=== PATIENT | female | born 1975 | race Two or more races ===

== ENCOUNTER 2020-02-24 04:49 | Inpatient (IN) | payer BC, OTHER ==
[2020-02-21 09:54] VITALS: BMI 37.8
[2020-02-24 06:36] LABS: HEMATOCRIT 40.9 % (32.4-45.2); HEMOGLOBIN 13.7 GM/dL (10.7-15.3); MCHC 33.4 g/dl (32.0-36.0); MEAN CELL VOLUME 86.6 fl (80-96); MEAN PLT VOLUME 7.5 fl (7.5-11.1); PLATELET COUNT 289 K/MM3 (134-434); RBC 4.72 M/mm3 (3.60-5.2); WHITE BLOOD COUNT 9.3 K/mm3 (4.0-10.0)
[2020-02-24 06:52] LABS: INR 1.08 (0.83-1.09); PROTHROMBIN TIME (PATIENT) 13.2 SEC (9.7-13.0)
[2020-02-24 06:55] LABS: ACTIVATED PTT 35.2 SECONDS (25.2-36.5)
[2020-02-24 06:59] LABS: POTASSIUM 4.5 mmol/L (3.5-5.1)
[2020-02-24 07:01] LABS: ALBUMIN 4.1 g/dl (3.4-5.0); CALCIUM 9.1 mg/dL (8.5-10.1)
[2020-02-24 07:02] LABS: BLOOD UREA NITROGEN 10.8 mg/dL (7-18)
[2020-02-24 07:05] LABS: CREATININE 0.8 mg/dL (0.55-1.3)
[2020-02-24 07:06] LABS: BILIRUBIN,TOTAL 0.4 mg/dL (0.2-1); TOT PROT 7.5 g/dl (6.4-8.2)
[2020-02-24] MEDS ORDERED: MIDAZOLAM HCL 2 MG/2 ML SINGLE DOSE VIAL ONE (07:33)
[2020-02-24] MEDS ORDERED: fentaNYL CITRATE 250 MCG/5 ML VIAL ONE (07:33)
[2020-02-24] MEDS ORDERED: PROPOFOL 20 ML ONE ×13 (07:33→11:52)
[2020-02-24] MEDS ORDERED: SUCCINYLCHOLINE CHLORIDE 200 MG/10 ML SYRINGE ONE (07:33)
[2020-02-24] MEDS ORDERED: SCOPOLAMINE HYDROBROMIDE 1 PATCH PATCH.TD72 ONE (08:01)
[2020-02-24] MEDS ORDERED: ceFAZolin SODIUM 1 GM VIAL ONE ×2 (08:33→12:09)
[2020-02-24] MEDS ORDERED: ceFAZolin SODIUM 1 GM VIAL IVPB ONE (08:40)
[2020-02-24] MEDS ORDERED: VANCOMYCIN 1,000 MG VIAL (RESTRICTED TO ID ONLY) ONE (08:42)
[2020-02-24] MEDS ORDERED: VANCOMYCIN 1,000 MG VIAL (RESTRICTED TO ID ONLY) IVPB ONE (08:45)
[2020-02-24] MEDS ORDERED: LIDOCAINE HCL/PF 2% SDV 5ML VIAL ONE (08:46)
[2020-02-24] MEDS ORDERED: TRANEXAMIC ACID 1000 MG/10 ML VIAL ONE (08:46)
[2020-02-24] MEDS ORDERED: LIDOCAINE 1%/EPI 1:100000 (50 ML MULTI DOSE VIAL) ONE (09:10)
[2020-02-24] MEDS ORDERED: THROMBIN (BOVINE) 5,000 UNIT VIAL TP ONE (09:12)
[2020-02-24] MEDS ORDERED: LIDOCAINE 1%/EPI 1:100000 (20 ML MULTI DOSE VIAL) IJ ONE (10:21)
[2020-02-24] MEDS ORDERED: SEVOFLURANE 250 ML BTL ONE (11:40)
[2020-02-24] MEDS ORDERED: DESFLURANE GAS 240 ML BOTTLE IH ONE (11:42)
[2020-02-24] MEDS ORDERED: DEXAMETHASONE SOD PHOSPHATE 4 MG/1 ML VIAL ONE (12:08)
[2020-02-24] MEDS ORDERED: ONDANSETRON 4 MG/2 ML VIAL ONE (12:08)
[2020-02-24] MEDS ORDERED: ONDANSETRON 4 MG/2 ML VIAL IVPUSH PRN (12:30)
[2020-02-24] MEDS ORDERED: PATIENT'S OWN MEDICATION (NON-FORMULARY) (Azelastine Hcl [Azelastine Hcl] 137 MCG) NS SCH (12:30)
[2020-02-24] MEDS ORDERED: oxyCODONE HCL 5 MG TABLET PO PRN (12:30)
[2020-02-24] MEDS ORDERED: HEPARIN NA (PORCINE) 5,000 UNITS/ML 1ML VIAL ONE (12:44)
[2020-02-24] MEDS ORDERED: THROMBIN (BOVINE) 20,000 UNIT VIAL TP ONE (12:44)
[2020-02-24] MEDS ORDERED: ALBUTEROL SO4 HFA INHALER IH ONE (12:48)
[2020-02-24] MEDS: LACTATED RINGERS SOLUTION 1,000 ML IV SCH ×2 (14:00→14:30)
[2020-02-24] MEDS: MORPHINE SULFATE 2 MG/ML VIAL IVPUSH PRN ×2 (16:00→22:09)
[2020-02-24] MEDS: CEFAZOLIN 2 GM/D5W 2 GM/50 ML ML IVPB SCH ×2 (17:25→21:05)
[2020-02-24] MEDS ORDERED: FAMOTIDINE 10 MG TABLET PO ONE (20:23)
[2020-02-24] MEDS ORDERED: PATIENT'S OWN MEDICATION (NON-FORMULARY) (Omeprazole 40 MG) PO SCH (20:30)
[2020-02-24] MEDS: LORATADINE 10 MG TABLET PO SCH (21:05)
[2020-02-24] MEDS ORDERED: CARBOXYMETHYLCELLULOSE SODIUM OP SCH (22:00)
[2020-02-24] MEDS ORDERED: DEXAMETHASONE SOD PHOSPHATE 10 MG/1 ML VIAL IVPUSH ONE (23:45)
[2020-02-25] MEDS: oxyCODONE HCL 5 MG TABLET PO PRN ×3 (00:12→16:32)
[2020-02-25] MEDS: CEFAZOLIN 2 GM/D5W 2 GM/50 ML ML IVPB SCH ×3 (02:51→14:11)
[2020-02-25] MEDS ORDERED: LEVOTHYROXINE NA 25 MCG TABLET (FP) ONE (05:28)
[2020-02-25] MEDS ORDERED: LEVOTHYROXINE NA 150 MCG TABLET ONE (05:28)
[2020-02-25] MEDS: LEVOTHYROXINE 150 MCG, LEVOTHYROXINE 25 MCG PO SCH (06:27)
[2020-02-25 06:59] LABS: HEMATOCRIT 37.6 % (32.4-45.2); HEMOGLOBIN 12.4 GM/dL (10.7-15.3); MCH 28.1 pg (25.7-33.7); MCHC 32.9 g/dl (32.0-36.0); MEAN CELL VOLUME 85.4 fl (80-96); PLATELET COUNT 248 K/MM3 (134-434); RDW 15.2 % (11.6-15.6); WHITE BLOOD COUNT 15.4 K/mm3 (4.0-10.0)
[2020-02-25 07:11] LABS: POTASSIUM 4.2 mmol/L (3.5-5.1)
[2020-02-25 07:17] LABS: CALCIUM 8.3 mg/dL (8.5-10.1)
[2020-02-25 07:18] LABS: ALBUMIN 3.4 g/dl (3.4-5.0)
[2020-02-25 07:21] LABS: CREATININE 0.7 mg/dL (0.55-1.3); PHOSPHOROUS 3.8 mg/dL (2.5-4.9)
[2020-02-25 07:22] LABS: BILIRUBIN,TOTAL 0.3 mg/dL (0.2-1); TOT PROT 6.5 g/dl (6.4-8.2)
[2020-02-25] MEDS ORDERED: PT OWN MED DRAWER 7, Y5N ONE ×2 (08:17→08:57)
[2020-02-25] MEDS ORDERED: LEVOTHYROXINE NA 150 MCG TABLET PO SCH (10:00)
[2020-02-25] MEDS: amLODIPine BESYLATE 5 MG TABLET (FP) PO SCH (10:38)
[2020-02-25] MEDS: LIOTHYRONINE SODIUM 5 MCG TABLET PO SCH (10:39)
[2020-02-25] MEDS: LACTATED RINGERS SOLUTION 1,000 ML IV SCH (13:17)
[2020-02-25] MEDS: MONTELUKAST NA 10 MG TABLET PO SCH (21:35)
[2020-02-25] MEDS: LORATADINE 10 MG TABLET PO SCH (21:35)
[2020-02-26] MEDS: oxyCODONE HCL 5 MG TABLET PO PRN ×3 (01:42→14:12)
[2020-02-26] MEDS ORDERED: LEVOTHYROXINE NA 150 MCG TABLET ONE (05:56)
[2020-02-26] MEDS ORDERED: LEVOTHYROXINE NA 25 MCG TABLET (FP) ONE (05:56)
[2020-02-26 06:53] LABS: HEMATOCRIT 35.8 % (32.4-45.2); HEMOGLOBIN 11.8 GM/dL (10.7-15.3); MCH 28.2 pg (25.7-33.7); MCHC 32.8 g/dl (32.0-36.0); MEAN CELL VOLUME 85.9 fl (80-96); MEAN PLT VOLUME 8.6 fl (7.5-11.1); PLATELET COUNT 275 K/MM3 (134-434); RBC 4.17 M/mm3 (3.60-5.2); RDW 15.3 % (11.6-15.6); WHITE BLOOD COUNT 17.6 K/mm3 (4.0-10.0)
[2020-02-26 07:43] LABS: POTASSIUM 4.3 mmol/L (3.5-5.1)
[2020-02-26 08:04] LABS: ALBUMIN 3.2 g/dl (3.4-5.0); BLOOD UREA NITROGEN 12.9 mg/dL (7-18); CALCIUM 8.3 mg/dL (8.5-10.1); MAGNESIUM 2.1 mg/dL (1.8-2.4)
[2020-02-26 08:07] LABS: CREATININE 0.6 mg/dL (0.55-1.3); PHOSPHOROUS 3.7 mg/dL (2.5-4.9)
[2020-02-26 08:08] LABS: BILIRUBIN,TOTAL 0.6 mg/dL (0.2-1); TOT PROT 6.3 g/dl (6.4-8.2)
[2020-02-26] MEDS: LEVOTHYROXINE 150 MCG, LEVOTHYROXINE 25 MCG PO SCH (08:20)
[2020-02-26] MEDS ORDERED: PT OWN MED DRAWER 7, Y5N ONE (09:56)
[2020-02-26] MEDS: LIOTHYRONINE SODIUM 5 MCG TABLET PO SCH (09:58)
[2020-02-26] MEDS: amLODIPine BESYLATE 5 MG TABLET (FP) PO SCH (11:51)
[2020-02-26] MEDS: LACTATED RINGERS SOLUTION 1,000 ML IV SCH (12:46)
[2020-02-26] MEDS: MONTELUKAST NA 10 MG TABLET PO SCH (21:18)
[2020-02-26] MEDS: LORATADINE 10 MG TABLET PO SCH (21:18)
[2020-02-27] MEDS: oxyCODONE HCL 5 MG TABLET PO PRN ×3 (01:58→22:43)
[2020-02-27] MEDS ORDERED: LEVOTHYROXINE NA 25 MCG TABLET (FP) ONE (06:25)
[2020-02-27] MEDS ORDERED: LEVOTHYROXINE NA 150 MCG TABLET ONE (06:25)
[2020-02-27] MEDS: LEVOTHYROXINE 150 MCG, LEVOTHYROXINE 25 MCG PO SCH (06:28)
[2020-02-27 09:01] LABS: BASO % 0.5 % (0-2.0); EOS % 0.4 % (0-4.5); HEMATOCRIT 39.6 % (32.4-45.2); HEMOGLOBIN 12.8 GM/dL (10.7-15.3); LYMPH % 32.9 % (8-40); MCH 28.1 pg (25.7-33.7); MCHC 32.4 g/dl (32.0-36.0); MEAN CELL VOLUME 86.7 fl (80-96); MEAN PLT VOLUME 7.7 fl (7.5-11.1); MONO % 7.8 % (3.8-10.2); NEUT % 58.4 % (42.8-82.8); PLATELET COUNT 246 K/MM3 (134-434); RBC 4.56 M/mm3 (3.60-5.2); RDW 15.1 % (11.6-15.6); WHITE BLOOD COUNT 10.1 K/mm3 (4.0-10.0)
[2020-02-27 09:28] LABS: CALCIUM 8.3 mg/dL (8.5-10.1); POTASSIUM 4.1 mmol/L (3.5-5.1)
[2020-02-27 09:29] LABS: BLOOD UREA NITROGEN 11.3 mg/dL (7-18); MAGNESIUM 2.1 mg/dL (1.8-2.4)
[2020-02-27 09:32] LABS: CREATININE 0.6 mg/dL (0.55-1.3)
[2020-02-27 09:33] LABS: PHOSPHOROUS 3.8 mg/dL (2.5-4.9)
[2020-02-27] MEDS: LIOTHYRONINE SODIUM 5 MCG TABLET PO SCH (09:58)
[2020-02-27] MEDS: amLODIPine BESYLATE 5 MG TABLET (FP) PO SCH (09:58)
[2020-02-27] MEDS: MONTELUKAST NA 10 MG TABLET PO SCH (21:13)
[2020-02-27] MEDS: LORATADINE 10 MG TABLET PO SCH (21:13)
[2020-02-28] MEDS ORDERED: LEVOTHYROXINE NA 150 MCG TABLET ONE (06:19)
[2020-02-28] MEDS ORDERED: LEVOTHYROXINE NA 25 MCG TABLET (FP) ONE (06:20)
[2020-02-28] MEDS: LEVOTHYROXINE 150 MCG, LEVOTHYROXINE 25 MCG PO SCH (06:21)
[2020-02-28] MEDS ORDERED: PT OWN MED DRAWER 7, Y5N ONE (09:13)
[2020-02-28] MEDS: amLODIPine BESYLATE 5 MG TABLET (FP) PO SCH (09:31)
[2020-02-28] MEDS: LIOTHYRONINE SODIUM 5 MCG TABLET PO SCH (09:38)
[2020-02-28] MEDS: oxyCODONE HCL 5 MG TABLET PO PRN (13:37)
[2020-02-28 16:43] VITALS: BP 126/68; PULSE 74; TEMP 97.5
== END 2020-02-28 15:44 | disposition home health service (06) | DRG 472 ==
LOC: J2C 04:49 → JICU 14:21
PROVIDERS: ADMIT Orthopaedic Surgery Adult Reconstructive Orthopaedic Surgery; ATTEND Internal Medicine
PROC: 0RG20A0 Fusion of 2 or more Cervical Vertebral Joints with Interbody Fusion Device, Anterior Approach, Anterior Column, Open Approach (ICD-10-PCS; principal; 2020-02-25)
PROC: 0RB30ZZ Excision of Cervical Vertebral Disc, Open Approach (ICD-10-PCS; 2020-02-25)
PROC: 01N10ZZ Release Cervical Nerve, Open Approach (ICD-10-PCS; 2020-02-25)
PROC: 0PS304Z Reposition Cervical Vertebra with Internal Fixation Device, Open Approach (ICD-10-PCS; 2020-02-25)
PROC: B01BZZZ Fluoroscopy of Spinal Cord (ICD-10-PCS; 2020-02-25)
PROC: 4A1004G Monitoring of Central Nervous Electrical Activity, Intraoperative, Open Approach (ICD-10-PCS; 2020-02-25)
DX: M40.202 Unspecified kyphosis, cervical region (principal); M47.12 Other spondylosis with myelopathy, cervical region; G37.3 Acute transverse myelitis in demyelinating disease of central nervous system; M47.22 Other spondylosis with radiculopathy, cervical region; E03.9 Hypothyroidism, unspecified; D72.829 Elevated white blood cell count, unspecified; I10 Essential (primary) hypertension; E66.9 Obesity, unspecified; Z68.37 Body mass index [BMI] 37.0-37.9, adult; M48.02 Spinal stenosis, cervical region; Z72.0 Tobacco use
CPT/HCPCS: 36415; 72050-TC-FY; 72125-TC; 76000-TC-FY; 80048; 80053; 83735; 84100; 84703; 85025; 85027; 85610; 85730; 86850; 86900; 86901; 86922; 88304-TC; 94010; 94760; 97116-GP; 97162-GP; J1100; J1644